=== PATIENT | female | born 2005 | race Caucasian/White ===

== ENCOUNTER 2024-09-28 00:38 | Emergency (ER) | payer BC, OTHER ==
[~2024-09-28] VITALS: Ht 152.4 cm; Wt 61.3 kg
[~2024-09-28 00:38] MED LIST: FLUOXETINE HCL10 MG PO; ORAL BIRTH CONTROL
[2024-09-28] MEDS ORDERED: LACTATED RINGER'S 1,000 ML IV ONE (01:00)
[2024-09-28] MEDS ORDERED: ondansetron HCL 4 MG/2 ML VIAL IV ONE (01:00)
[2024-09-28] MEDS ORDERED: ONDANSETRON 4 MG TAB ODT SL ONE (01:15)
[2024-09-28] MEDS ORDERED: ONDANSETRON 4 MG HOME.PACK SL ONE (01:45)
[2024-09-28 01:47] VITALS: BP 00/00
== END 2024-09-28 01:45 | disposition home or self-care (01) ==
LOC: ED 00:38
DX: F10.129 Alcohol abuse with intoxication, unspecified (principal); Z79.899 Other long term (current) drug therapy
CPT/HCPCS: 80053; 85025; 99283; A9270

== ENCOUNTER 2024-12-23 12:32 | Emergency (ER) | payer BC, OTHER ==
[~2024-12-23] VITALS: Ht 152.4 cm; Wt 48.1 kg
[2024-12-23] MEDS ORDERED: FLUCONAZOLE150 MG PO (12:43)
[2024-12-23] MEDS ORDERED: METRONIDAZOLE500 MG PO (12:44)
[2024-12-23] MEDS ORDERED: VALACYCLOVIR1000 MG PO (14:01)
[2024-12-23 14:15] VITALS: BP 103/67
[2024-12-23] MEDS ORDERED: ONDANSETRON ODT8 MG PO (15:05)
[2024-12-23] MEDS ORDERED: HYDROCODON-ACE1 EA10 PO (15:05)
[2024-12-27 05:25] LABS: HSV 1 SUBTYPE BY PCR Detected (()); HSV 2 SUBTYPE BY PCR Not Detected (()); HSV SUBTYPE SOURCE Plasma (())
== END 2024-12-23 14:15 | disposition home or self-care (01) ==
LOC: ED 12:32
PROVIDERS: Emergency Medicine
DX: A60.04 Herpesviral vulvovaginitis (principal); Z79.899 Other long term (current) drug therapy
CPT/HCPCS: 87529; 99283